=== PATIENT | female | born 1970 | race Caucasian/White ===

== ENCOUNTER 2020-05-19 18:05 | Emergency (ER) | payer MEDICARE, SELFPAY ==
[2020-05-19 18:18] VITALS: BP 112/66; PULSE 76; RESP 7; TEMP 36.8; O2SAT 98; BMI 35.7
--- NOTE | 2020-05-19 18:21 | XR_ITS ---
EXAMINATION: XR KNEE, RIGHT XR KNEE, LEFT XR BILATERAL HIPS WITH AP PELVIS XR TIBIA AND FIBULA, LEFT CLINICAL INFORMATION: Fall up an escalator, left leg pain. Low back pain. COMPARISON: None TECHNIQUE: AP and frog-leg lateral views of each hip and an AP view of the pelvis. Two views of each knee. AP and lateral views of the left tibia and fibula FINDINGS: PELVIS AND HIPS: Bones are intact. No fracture or malalignment. Bone mineralization is normal. Hip joints appear well-preserved. Pubic symphysis and SI joints are unremarkable. Soft tissues are normal in appearance. RIGHT KNEE: Bones and soft tissues are normal. No fracture or joint effusion. Alignment is anatomic. Joint spaces are well maintained. No abnormal soft tissue calcification. LEFT KNEE: Bones and soft tissues are normal. No fracture or joint effusion. Alignment is anatomic. Joint spaces are well maintained. No abnormal soft tissue calcification. LEFT TIBIA AND FIBULA: No fracture or malalignment. Bone mineralization is normal. Ankle joint is unremarkable. Mild soft tissue swelling. XR/XR hip BI w PEL1V IMPRESSION: No acute osseous abnormalities are identified in the pelvis, hips, knee, and left tibia and fibula.
--- NOTE | 2020-05-19 18:21 | XR_ITS ---
EXAMINATION: SACRUM 3 VIEWS AND THORACIC SPINE 3 VIEWS CLINICAL INFORMATION: Pain status post fall COMPARISON: None TECHNIQUE: As above nonweightbearing FINDINGS: Arcuate lines about the sacroiliac. Intact. No obstruction the sacral joints. Pubic bones appear intact. No gross coccygeal deformity. Moderate disc space narrowing L5-S1. Dorsal spine imaging demonstrates diffuse endplate spurring. There is no fracture or subluxation. Endplates intact. Vertebral pedicles and spinous processes intact. XR/XR thoracic spine 2V IMPRESSION: No fracture.
--- NOTE | 2020-05-19 18:21 | XR_ITS ---
EXAMINATION: XR KNEE, RIGHT XR KNEE, LEFT XR BILATERAL HIPS WITH AP PELVIS XR TIBIA AND FIBULA, LEFT CLINICAL INFORMATION: Fall up an escalator, left leg pain. Low back pain. COMPARISON: None TECHNIQUE: AP and frog-leg lateral views of each hip and an AP view of the pelvis. Two views of each knee. AP and lateral views of the left tibia and fibula FINDINGS: PELVIS AND HIPS: Bones are intact. No fracture or malalignment. Bone mineralization is normal. Hip joints appear well-preserved. Pubic symphysis and SI joints are unremarkable. Soft tissues are normal in appearance. RIGHT KNEE: Bones and soft tissues are normal. No fracture or joint effusion. Alignment is anatomic. Joint spaces are well maintained. No abnormal soft tissue calcification. LEFT KNEE: Bones and soft tissues are normal. No fracture or joint effusion. Alignment is anatomic. Joint spaces are well maintained. No abnormal soft tissue calcification. LEFT TIBIA AND FIBULA: No fracture or malalignment. Bone mineralization is normal. Ankle joint is unremarkable. Mild soft tissue swelling. XR/XR knee RT 2V IMPRESSION: No acute osseous abnormalities are identified in the pelvis, hips, knee, and left tibia and fibula.
--- NOTE | 2020-05-19 18:21 | XR_ITS ---
EXAMINATION: XR KNEE, RIGHT XR KNEE, LEFT XR BILATERAL HIPS WITH AP PELVIS XR TIBIA AND FIBULA, LEFT CLINICAL INFORMATION: Fall up an escalator, left leg pain. Low back pain. COMPARISON: None TECHNIQUE: AP and frog-leg lateral views of each hip and an AP view of the pelvis. Two views of each knee. AP and lateral views of the left tibia and fibula FINDINGS: PELVIS AND HIPS: Bones are intact. No fracture or malalignment. Bone mineralization is normal. Hip joints appear well-preserved. Pubic symphysis and SI joints are unremarkable. Soft tissues are normal in appearance. RIGHT KNEE: Bones and soft tissues are normal. No fracture or joint effusion. Alignment is anatomic. Joint spaces are well maintained. No abnormal soft tissue calcification. LEFT KNEE: Bones and soft tissues are normal. No fracture or joint effusion. Alignment is anatomic. Joint spaces are well maintained. No abnormal soft tissue calcification. LEFT TIBIA AND FIBULA: No fracture or malalignment. Bone mineralization is normal. Ankle joint is unremarkable. Mild soft tissue swelling. XR/XR knee LT 2V IMPRESSION: No acute osseous abnormalities are identified in the pelvis, hips, knee, and left tibia and fibula.
--- NOTE | 2020-05-19 18:21 | XR_ITS ---
EXAMINATION: SACRUM 3 VIEWS AND THORACIC SPINE 3 VIEWS CLINICAL INFORMATION: Pain status post fall COMPARISON: None TECHNIQUE: As above nonweightbearing FINDINGS: Arcuate lines about the sacroiliac. Intact. No obstruction the sacral joints. Pubic bones appear intact. No gross coccygeal deformity. Moderate disc space narrowing L5-S1. Dorsal spine imaging demonstrates diffuse endplate spurring. There is no fracture or subluxation. Endplates intact. Vertebral pedicles and spinous processes intact. XR/XR sacrum coccyx min 2V IMPRESSION: No fracture.
--- NOTE | 2020-05-19 18:24 | ED_ITS ---
HPI - Fall General Chief Complaint: Fall Stated Complaint: fall on escalator Time Seen by Provider: 05/19/20 18:21 Source: patient Mode of arrival: ambulatory Limitations: no limitations History of Present Illness HPI Narrative: 49-year-old female presents with injury sustained from falling up an escalator. She lost her balance, landed on all fours, has a superficial laceration and abrasion to the top of the left leg right below the patella, some lower back pain and bilateral knee pain. She was seen at a [facility], she was referred to the emergency department for further evaluation. She is able to walk, states that she does have some pulling sensation to her lower back, and applied triple antibiotic ointment to the superficial laceration to her left leg. She states that she lost her balance, landed on all fours did not hit her head or lose consciousness. She did not have any dizziness, lightheadedness, or any other symptoms prior to the fall. MD complaint: fall Onset (ago): hour(s) (Within the hour of arrival) Fall from: standing Fall witnessed: yes, by family Place fall occurred: other (Store, escalator) Loss of consciousness: none Prolonged down time: no Symptoms prior to fall: none Context: tripped/slipped Location of injury: back and pelvis Location of injury - extremities: bilateral: knee Severity: moderate Severity scale (1-10): 7 Quality: aching Associated symptoms (after fall): denies Related Data Allergies Allergy/AdvReac Type Severity Reaction Status Date / Time azithromycin [Azithromycin] Allergy Unknown HIVES Verified 05/19/20 18:50 latex [LATEX] Allergy Unknown HIVES Verified 05/19/20 18:50 tetracycline [Tetracycline] Allergy Unknown HIVES Verified 05/19/20 18:50 Review of Systems Review of Systems: Constitutional: No Fever, No Chills ENT/Mouth: No Ear Pain, No Hoarseness, No sore throat Eyes: No Eye Pain, No Swelling, No Redness, No Foreign Body Cardiovascular: No Chest Pain, No SOB Respiratory: No Cough, No Dyspnea Gastrointestinal: No Nausea, No Vomiting, No Diarrhea, No abdominal Pain Genitourinary: No Dysuria, No Hematuria Musculoskeletal: positive joint pain to bilateral knees, lower back, and left hip, No Myalgias, No Joint Swelling Skin: Superficial lacerations to the left leg, No rash Neuro: No Weakness, No Numbness, No Paresthesias, No Loss of Consciousness, No Dizziness, No Headache Psych: No Anxiety/Panic, No Depression Heme/Lymph: no easy bruising, no Lymphadenopathy Endocrine: No Polyuria, No Polydipsia Yes all other systems are reviewed and are negative FORMERLY [facility], [facility]1983 Past Medical History Medical History Anxiety Depression Hx of bipolar disorder Surgical History S/P lumpectomy, right breast Social History Social History Smoking Status: Never smoker Use of substances other than those prescribed or required for medical reasons: No Advance Directives: No Advance Directives Information Provided: No Physical Exam Vital Signs: Vital Signs: Last Vital Signs Temp 98.3 F 05/19/20 18:18 Pulse 76 05/19/20 18:18 Resp 7 L 05/19/20 18:18 BP 112/66 05/19/20 18:18 Pulse Ox 98 05/19/20 18:18 Body Mass Index 35.7 Appearance: Alert. Oriented X3. No acute distress. Eyes: Pupils equal, round and reactive to light. ENT: Pharynx normal. Neck: Normal inspection. Neck supple. CVS: Normal heart rate and rhythm. Pulses normal. Respiratory: No respiratory distress. Breath sounds normal. Abdomen: Soft and nontender. Skin: Superficial abrasions to the left tibial tuberosity 1 measuring 3 cm in length by 0.2 mm in width, 2nd 1.5 cm in length, by 0.2 mm in with, bleeding well controlled, tenderness to the surrounding area. Otherwise all other Skin warm and dry. Normal skin color. Normal skin turgor. Extremities: No lower extremity edema. Full range of motion to all extremities, 5/5 strength against resistance. Neuro: No motor deficit. No sensory deficit.Cranial nerves 2-12 intact, no focal neural deficits, no indication of cauda equina Course Course Course Narrative: 49-year-old female presents after a fall up an escalator, she tripped and landed on all fours and has pain to the bilateral knees, hips and lower back. Plan of care is to x-ray both knees, left tibial tuberosity, bilateral hips and lower back. We will update her Tdap today. Wound was cleaned with normal saline, abrasions are superficial we will apply triple antibiotic ointment and a sterile dressing. MDM - Fall MDM Narrative Medical decision making narrative: Abrasion, Differential Diagnosis Differential diagnosis: Likely compression fracture Medical Records Attestation: I reviewed the patient's medical records. Imaging Data Left knee, left tibial, right knee x-rays: Attestation: I personally reviewed and interpreted this imaging study as follows: Radiologist's impression: EXAMINATION: XR KNEE, RIGHT XR KNEE, LEFT XR BILATERAL HIPS WITH AP PELVIS XR TIBIA AND FIBULA, LEFT CLINICAL INFORMATION: Fall up an escalator, left leg pain. Low back pain. COMPARISON: None TECHNIQUE: AP and frog-leg lateral views of each hip and an AP view of the pelvis. Two views of each knee. AP and lateral views of the left tibia and fibula FINDINGS: PELVIS AND HIPS: Bones are intact. No fracture or malalignment. Bone mineralization is normal. Hip joints appear well-preserved. Pubic symphysis and SI joints are unremarkable. Soft tissues are normal in appearance. RIGHT KNEE: Bones and soft tissues are normal. No fracture or joint effusion. Alignment is anatomic. Joint spaces are well maintained. No abnormal soft tissue calcification. LEFT KNEE: Bones and soft tissues are normal. No fracture or joint effusion. Alignment is anatomic. Joint spaces are well maintained. No abnormal soft tissue calcification. LEFT TIBIA AND FIBULA: No fracture or malalignment. Bone mineralization is normal. Ankle joint is unremarkable. Mild soft tissue swelling. XR/XR hip BI w PEL1V IMPRESSION: No acute osseous abnormalities are identified in the pelvis, hips, knee, and left tibia and fibula. Thoracic spine and sacrum x-ray: Attestation: I personally reviewed and interpreted this imaging study as follows: Radiologist's impression: EXAMINATION: SACRUM 3 VIEWS AND THORACIC SPINE 3 VIEWS CLINICAL INFORMATION: Pain status post fall COMPARISON: None TECHNIQUE: As above nonweightbearing FINDINGS: Arcuate lines about the sacroiliac. Intact. No obstruction the sacral joints. Pubic bones appear intact. No gross coccygeal deformity. Moderate disc space narrowing L5-S1. Dorsal spine imaging demonstrates diffuse endplate spurring. There is no fracture or subluxation. Endplates intact. Vertebral pedicles and spinous processes intact. XR/XR thoracic spine 2V IMPRESSION: No fracture. Discharge Plan Discharge Clinical Impression: Strain of muscle, fascia and tendon of lower back, sequela Fall Qualifiers: Encounter type: initial encounter Qualified Code(s): W19.XXXA - Unspecified fall, initial encounter Contusion Qualifiers: Encounter type: initial encounter Contusion area: knee Laterality: unspecified laterality Qualified Code(s): S80.00XA - Contusion of unspecified knee, initial encounter Patient Disposition: Home, Self-Care Instructions: Contusion in Adults (ED), Abrasion (ED), Knee Pain (ED), Fall Prevention (ED) Additional Instructions: You were evaluated for injuries sustained from following up an escalator. X- rays of the thoracic spine, sacral spine, hips and pelvis, bilateral knees, and left tibia are negative for acute findings. You do have an abrasion to the left galindo, please keep this area clean and dry, apply topical antibiotic ointment daily. Take Tylenol and Motrin as needed for muscular pain. Ice and elevate to help reduce swelling and pain. You may consider following up with the primary care physician if your pain persists. You may consider physical therapy to help with musculoskeletal strain. We updated your Tdap vaccine today. Thank you for choosing this emergency department for evaluation. Please follow-up with primary care physician as needed. Return to the emergency department for any new, concerning, or worsening symptoms.
[2020-05-19] MEDS: Ibuprofen 600 MG TABLET PO (18:51)
--- NOTE | 2020-05-19 19:11 | PC.NURSE ---
CLEANSED ABRASION TO LEFT LOWER LEG WITH SALINE/BETADINE, BACITRACIN AND BAND-AID APPLIED.PT TOLL WELL.
== END 2020-05-19 19:14 | disposition home or self-care (01) ==
PROVIDERS: Emergency Provider Internal Medicine
DX: S39.012A Strain of muscle, fascia and tendon of lower back, initial encounter (principal); S80.02XA Contusion of left knee, initial encounter; S80.812A Abrasion, left lower leg, initial encounter; W10.0XXA Fall (on)(from) escalator, initial encounter; Y93.89 Activity, other specified; Y92.59 Other trade areas as the place of occurrence of the external cause; Y99.8 Other external cause status
CPT/HCPCS: 72070; 72220; 73521; 73560; 73590; 90471; 90715; 99283; 99284

== ENCOUNTER → 2024-02-11 14:35 | Outpatient (RCR) | payer MEDICARE, SELFPAY ==
[2020-12-07 14:21] VITALS: BP 112/79; PULSE 76; RESP 14; TEMP 37; O2SAT 98; BMI 39.5
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
[2020-12-07 15:06] LABS: MANUAL DIFF FLAG NO
[2020-12-07 15:10] LABS: Basophils Absolute Auto 0.1 X10*3/uL (0.0-0.2); Basophils Percent Auto 0.9 % (0-2); Eosinophils Absolute Auto 0.3 X10*3/uL (0.0-0.4); Eosinophils Percent Auto 3.7 % (0-4); Imm Gran Abs Auto 0.03 X10*3/uL (0.00-0.03); Imm Gran Pct Auto 0.4 % (0.0-0.4); Lymphocytes Absolute Auto 1.6 X10*3/uL (1.2-4.9); Lymphocytes Percent Auto 23.3 % (20-40); Mean Corpuscular HGB Conc 33.3 g/dl (31.0-35.0); Mean Corpuscular Hemoglobin 29.5 pg (27.0-33.0); Mean Corpuscular Volume 88.6 fL (80-98); Mean Platelet Volume 9.6 fL (9.4-12.3); Monocytes Absolute Auto 0.6 X10*3/uL (0.1-1.2); Monocytes Percent Auto 8.1 % (2-11); Neutrophils Absolute Auto 4.3 X10*3/uL (2.0-8.3); Neutrophils Percent Auto 63.6 % (45-73); Platelet Count 229 X10*3/uL (160-400); Red Blood Count 4.74 X10*6/uL (4.20-5.50); Red Cell Distribution Width 12.3 % (11.0-16.0); White Blood Count 6.8 X10*3/uL (4.8-10.8)
[2020-12-07 15:29] LABS: Potassium 4.8 mmol/L (3.3-5.1); Sodium 142 mmol/L (135-145)
[2020-12-07 15:30] LABS: Alanine Aminotransferase 19 U/L (0-31); Albumin Level 4.5 g/dL (3.5-5.0); Alkaline Phosphatase 129 U/L (39-117); Anion Gap 16 (12-20); Aspartate Amino Transferase 15 U/L (5-31); Bilirubin Total 0.4 mg/dL (0.0-1.0); Blood Urea Nitrogen 13 mg/dL (9-16); Calcium 9.9 mg/dL (8.4-10.2); Carbon Dioxide 27 mmol/L (22-29); Chloride 104 mmol/L (96-108); Creatinine Clr Calc Pharmacy 105.5; D Dimer < 200 NG/ML; Estimated Glomerular Filt Rate > 60; Glucose Random 101 mg/dL (60-115); Total Protein 7.4 g/dL (6.5-8.0)
--- NOTE | 2020-12-07 15:54 | MHC.HEMONCMA ---
Patient came in for a consult today for her hx of DVT, she would like to start hormonal therapy for her hot flashes and menopause symptoms and needs clearance for this. Clinical summary was reviewed and updated. Patient had labs and does not need an appt for a follow up. Dr Milan will call her with the results.
== END | disposition home or self-care (01) ==
LOC: HO.ONC 12-07 14:02
PROVIDERS: PCP Pediatrics; Referring Provider Obstetrics & Gynecology; Visit Provider Internal Medicine Medical Oncology
DX: Z86.718 Personal history of other venous thrombosis and embolism (principal)
CPT/HCPCS: 36415; 80053; 85025; 85379; 99204